=== PATIENT | female | born 2000 | race Caucasian/White ===

== ENCOUNTER 2023-08-14 17:19 | Emergency (ER) | payer MEDICAID ==
[~2023-08-14] VITALS: Ht 170.2 cm; Wt 102.5 kg
[2023-08-14 17:36] VITALS: BP 135/88; TEMP 98.2
[2023-08-14] MEDS ORDERED: LORazepam 1 MG tablet PO ONE (17:45)
[2023-08-14] MEDS ORDERED: LORA-268 PO (17:53)
[2023-08-14] MEDS ORDERED: HYDR-3686 PO (17:53)
[2023-08-14] MEDS: LORazepam 0.5 MG tablet PO ONE (17:57)
[2023-08-14 18:04] VITALS: PULSE 86; RESP 16; O2SAT 98
== END 2023-08-14 18:05 | disposition home or self-care (01) ==
LOC: ER 17:19
DX: F41.9 Anxiety disorder, unspecified (principal); R07.89 Other chest pain; R00.2 Palpitations; F41.0 Panic disorder [episodic paroxysmal anxiety]; Z79.899 Other long term (current) drug therapy
CPT/HCPCS: 93005; 99283